=== PATIENT | female | born 1980 | race Caucasian/White ===

== ENCOUNTER 2016-08-23 11:08 | Emergency (ER) | payer OTHER ==
[2016-08-23 11:59] VITALS: BP 142/70; PULSE 76; RESP 20; TEMP 98.4; O2SAT 99
--- NOTE | 2016-08-23 12:19 | UCPHY ---
H & P Time Seen by Provider: 08/23/16 12:02 Patient Type: New HPI/ROS: CHIEF COMPLAINT: Flu-like symptoms x3 days HISTORY OF PRESENT ILLNESS: 36-year-old immunocompetent female, nonsmoker, no influenza vaccination this season, complaining of nasal congestion, fever, chills, myalgias, nonproductive cough, sore throat for the past 3 days. No international travel. She has 3 children at home all who have been sick recently. No abdominal pain. No chest pain. No back pain. No dyspnea specifically. REVIEW OF SYSTEMS: A ten point review of systems was performed and is negative with the exception of the items mentioned in the HPI PAST MEDICAL & SURGICAL HISTORY: No pertinent medical or surgical history SOCIAL HISTORY: nonsmoker PHYSICAL EXAM (Prior to examination, patient consented to physical exam, hands were washed and my usual and customary physical exam procedures followed) 1) GENERAL: Well-developed, well-nourished, alert and oriented. Appears nontoxic . 2) HEAD: Normocephalic, atraumatic 3) HEENT: Pupils equal, round, reactive to light bilaterally. Sclera anicteric. Nasopharynx, oropharynx, clear, no lesions. Ears bilaterally with normal tympanic membranes. 4) NECK: Full range of motion, no meningeal signs. 5) LUNGS: Clear auscultation bilaterally, no wheezes, no rhonchi, no retractions. 6) HEART: Regular rate and rhythm, no murmur, no heave, no gallop. 7) ABDOMEN: No guarding, no rebound, no focal tenderness, negative McBurney's, negative Pedroza's, negative Rovsing's, negative peritoneal sign, 8) MUSCULOSKELETAL: Moving all extremities, no focal areas of tenderness, no obvious trauma. No peripheral edema or discoloration. Negative Homans no palpable cord 9) BACK: No CVA tenderness, no midline vertebral tenderness, no fluctuance, no step-off, no obvious trauma, no visual or palpable abnormality. 10) SKIN: No rash, no petechiae. 11) Psychiatric: Patient is oriented X 3, there is no agitation. DIFFERENTIAL DIAGNOSIS: in no particular include but limited to pneumonia, bronchitis, influenza Smoking Status: Former smoker Constitutional: Initial Vital Signs Temperature (C) 36.9 C 08/23/16 11:54 Heart Rate 76 08/23/16 11:54 Respiratory Rate 20 08/23/16 11:54 Blood Pressure 142/70 H 08/23/16 11:54 O2 Sat (%) 99 08/23/16 11:54 O2 Delivery Mode Room Air Allergies/Adverse Reactions: No Known Allergies Allergy (Verified 08/23/16 11:59) Home Medications: Medication Instructions Recorded Excedrin Migraine 07/01/09 AZITHROMYCIN [Z-PACK] 500 mg PO DAILY #1 packet 08/23/16 Albuterol [Proventil Inhaler HFA 1 - 2 puffs IH Q4PRN PRN #1 mdi 08/23/16 (*)] Benzonatate [Tessalon Pearles (RX)] 200 mg PO TID PRN #15 cap 08/23/16 MDM/Departure - MDM ED Course/Re-evaluation: re-evaluation with serial exams. No signs of respiratory distress most recent exam at 12:45 p.m.. Discussed her diagnostic results. Doubt pulmonary embolus with a negative perc score, no history of exogenous estrogen use, nonsmoker, not tachycardic, not tachypneic. Do not think that chest imaging currently indicated given her normal saturations, clear lungs, not tachycardic or tachypneic. We discussed antibiotic therapy, albuterol , antitussive. Usual customary strict return precautions provided. She feels comfortable being discharged - Depart Disposition: Home, Routine, Self-Care Clinical Impression: Upper respiratory infection Qualifiers: URI type: unspecified URI Qualifier Code: (J06.9) Acute upper respiratory infection, unspecified Condition: Good Instructions: Upper Respiratory Infection (ED) Additional Instructions: Return to the emergency department immediately for change in breathing habits, change in voice, change in swallowing habits, change in mental status, or any other symptoms that concern you. Stand Alone Forms: Work Excuse Prescriptions: Albuterol [Proventil Inhaler HFA (*)] 1 - 2 puffs IH Q4PRN PRN #1 mdi PRN Reason: Cough, Moderate Benzonatate [Tessalon Pearles (RX)] 200 mg PO TID PRN #15 cap PRN Reason: Cough, Moderate AZITHROMYCIN [Z-PACK] 500 mg PO DAILY #1 packet Referrals: Kasandra Grossman MD [Medical Doctor] - 2-3 days, if not improved - PQRS PQRS Measurement: Not applicable
[2016-08-23] MEDS ORDERED: IBUPROFEN 200 MG TAB PO ONE (13:07)
[2016-08-23] MEDS ORDERED: OXYCODONE/APAP 5/325MG PREPACK#4 BTL TAKEHOME ONE (13:13)
== END 2016-08-23 13:24 | disposition home or self-care (01) ==
LOC: CED 11:08
DX: J06.9 Acute upper respiratory infection, unspecified (principal); Z87.891 Personal history of nicotine dependence
CPT/HCPCS: 87400-PO; 99204-PO; G0463-PO